=== PATIENT | female | born 1965 | race Caucasian/White ===

== ENCOUNTER 2020-07-16 14:19 | Emergency (ER) | payer OTHER ==
--- NOTE | 2020-07-16 15:33 | ER Document Report ---
ED Medical Screen (RME) - General Chief Complaint: Pain All Over Stated Complaint: MUSCLE PAIN,FEVER,HEADACHE Time Seen by Provider: 07/16/20 15:13 - HPI Notes: 07/16/20 15:25 55 year old female with a medical hx of fibromyalgia, Raynaud's disease, sjogren's syndrome, osteoarthritis, PTSD presents today with nonspecific complaints of muscle pain and joint pain all over for the last two months. Patient reports she has had low-grade fevers and chills for the last 2 months. She is from [place] decided to move to [place] to avoid the cold. Patient denies any chest pain, shortness of breath, nausea, vomiting, diarrhea, fevers. She does report chills. Denies any Covid positive interactions and denies any personal Covid positive test. Patient states she spoke to her primary care doctor this morning because she was concerned about discoloration with her hands and feet this morning, they advised her to go to the local ER. Patient does not have a primary care doctor in the area. patient states she did start with a rash on her nose and cheeks which she does have a picture of. When asked her if she had lupus she said she is unsure. Denies any lightheadedness dizziness blurred vision double vision loss of vision. Patient states she has been weak all over for the last 2 months or so I have greeted and performed a rapid initial assessment of this patient. A comprehensive ED assessment and evaluation of the patient, analysis of test results and completion of the medical decision making process will be conducted by additional ED providers. PHYSICAL EXAMINATION: GENERAL: Well-appearing, well-nourished and in no acute distress. HEAD: Atraumatic, normocephalic. EYES: Pupils equal round extraocular movements intact, conjunctiva are normal. NECK: Normal range of motion CV: s1, s2 regular LUNGS: No respiratory distress Musculoskeletal: Normal range of motion NEUROLOGICAL: Normal speech, normal gait. SKIN: Warm, Dry, normal turgor, no rashes or lesions noted. The patient was evaluated during a global COVID-19 pandemic and that diagnosis was suspected/considered upon their initial presentation. Their evaluation, treatment and testing was consistent with current guidelines for patients who present with complaints or symptoms and may be related to COVID-19. - Related Data Allergies/Adverse Reactions: Sulfa (Sulfonamide Antibiotics) Allergy (Verified 07/16/20 15:13) Physical Exam - Vital signs Vitals: Temp Pulse Resp BP Pulse Ox 98.1 F 98 20 128/94 H 97 07/16/20 14:50 07/16/20 14:50 07/16/20 14:50 07/16/20 14:50 07/16/20 14:50 Course - Vital Signs Vital signs: Temp Pulse Resp BP Pulse Ox 98.1 F 98 20 128/94 H 97 07/16/20 14:50 07/16/20 14:50 07/16/20 14:50 07/16/20 14:50 07/16/20 14:50
[2020-07-16 16:09] LABS: ABSOLUTE BASOPHILS # (AUTO) 0.1 10^3/uL (0.0-0.2); ABSOLUTE EOSINOPHILS # (AUTO) 0.2 10^3/uL (0.0-0.6); ABSOLUTE MONOCYTES (AUTO) 0.6 10^3/uL (0.1-1.4); BASOPHILS % (AUTO) 0.5 % (0-2); EOSINOPHILS % (AUTO) 1.6 % (0-6); HEMOGLOBIN 14.7 g/dL (12.0-15.5); LYMPHOCYTES % (AUTO) 16.7 % (13-45); MEAN CORPUSCULAR HEMOGLOBIN 29.6 pg (27.0-33.4); MEAN CORPUSCULAR HGB CONC 33.3 g/dL (32.0-36.0); MEAN CORPUSCULAR VOLUME 89 fl (80-97); MONOCYTES % (AUTO) 5.1 % (3-13); PLATELET COUNT 254 10^3/uL (150-450); RED BLOOD COUNT 4.96 10^6/uL (3.72-5.28); RED CELL DISTRIBUTION WIDTH 14.1 % (11.5-14.0); SEGMENTED NEUTROPHILS % (AUTO) 76.1 % (42-78); TOTAL CELLS COUNTED % (AUTO) 100 %; WHITE BLOOD COUNT 11.8 10^3/uL (4.0-10.5)
[2020-07-16 16:31] LABS: ALBUMIN 4.7 g/dL (3.5-5.0); ALKALINE PHOSPHATASE 89 U/L (38-126); ANION GAP 8 (5-19); ASPARTATE AMINO TRANSFERASE 26 U/L (14-36); BILIRUBIN,DIRECT 0.1 mg/dL (0.0-0.4); BILIRUBIN,TOTAL 0.4 mg/dL (0.2-1.3); BLOOD UREA NITROGEN 13 mg/dL (7-20); CALCIUM 9.8 mg/dL (8.4-10.2); CARBON DIOXIDE 29 mmol/L (22-30); CHLORIDE 100 mmol/L (98-107); GLUCOSE 94 mg/dL (75-110); POTASSIUM 4.3 mmol/L (3.6-5.0); TOTAL PROTEIN 7.8 g/dL (6.3-8.2)
[2020-07-16 16:34] LABS: C-REACTIVE PROTEIN < 5.0 mg/L (<10.0)
--- NOTE | 2020-07-16 17:59 | ER Document Report ---
ED General - General Chief Complaint: Pain All Over Stated Complaint: MUSCLE PAIN,FEVER,HEADACHE Time Seen by Provider: 07/16/20 15:13 - HPI Notes: 55-year-old female presents with pain all over. Patient initially states "don't even ask", she states that she is upset that she had to sit and 6 different chairs in the lobby, she has had to talk to 6 different nurses, she states she is upset that she has had to wear a mask. Eventually patient states that her head hurts, her face hurts, her mouth hurts. She states that her jacket feels heavy on her body, the sleeves on her jacket are hurting her wrists. Her bra is hurting her, her underwear is hurting her. She can feel all of the individual laces from her shoes on her feet. She states that her face is swollen, she no longer likes her normal appearance, and her eyes look beady. She states that she is fatigued, tired, exhausted. She states that she has had a rash all over her body. Her whole body is swollen. She states that the symptoms have been going on for 2 months. She also reports intermittent fever of 100 F. She states that she called her primary care doctor who is in [place] and was advised to go to the emergency department because the doctor reportedly said "I have never seen you look this bad". Patient moved to [place] from [place] about 2 months ago, she has not yet established with a primary care doctor. She reports she previously was on gabapentin, baclofen and hydroxychloroquine, however it has been "a while" since she has been on these medications, estimated about 2 years. She reports that her #1 autoimmune disease is fibromyalgia. She also has Raynaud's and the "dry eye, dry mouth" condition. She states that she has intermittently had to go on prednisone. She states that she is unsure of any medicines that typically when she gets like this, states that typically she has to take off all of her clothes which does provide some relief of her total body pain. She states she is taken ibuprofen and Tylenol which have provided no relief. She currently takes prazosin, duloxetine, BuSpar, Xanax and simvastatin. - Related Data Allergies/Adverse Reactions: Sulfa (Sulfonamide Antibiotics) Allergy (Verified 07/16/20 15:13) Past Medical History - General Information source: Patient - Social History Smoking Status: Never Smoker Family History: Reviewed & Not Pertinent Psychiatric Medical History: Reports: Hx Depression - ptsd/anxiety Past Surgical History: Reports: Hx Abdominal Surgery - tummy tuck, Hx Appendectomy, Hx Breast Surgery, Hx Section - x3, Hx Hysterectomy Review of Systems - Review of Systems Constitutional: Chills, Fever, Malaise EENT: Eye pain, Throat pain, Mouth pain Cardiovascular: denies: Chest pain Respiratory: denies: Cough, Short of breath Gastrointestinal: denies: Abdominal pain, Diarrhea, Vomiting Genitourinary: No symptoms reported Female Genitourinary: No symptoms reported Musculoskeletal: Back pain, Joint pain, Joint swelling, Muscle pain, Leg swelling Skin: Change in color, Rash Hematologic/Lymphatic: Other - Autoimmune disease Neurological/Psychological: Headaches Physical Exam - Vital signs Vitals: Temp Pulse Resp BP Pulse Ox 98.1 F 98 20 128/94 H 97 07/16/20 14:50 07/16/20 14:50 07/16/20 14:50 07/16/20 14:50 07/16/20 14:50 - General General appearance: Appears well, Alert In distress: None - HEENT Head: Normocephalic, Atraumatic Eyes: Scleral icterus Conjunctiva: Normal. No: Icteric, Injected Extraocular movements intact: Yes Pupils: PERRL Mouth/Lips: Normal Mucous membranes: Moist Neck: Supple - Respiratory Chest status: Nontender Breath sounds: Normal - Cardiovascular Rhythm: Regular Heart sounds: Normal auscultation Pulses: Normal: Dorsalis pedis Normal capillary refill: Yes - Abdominal Tenderness: Nontender - Extremities General upper extremity: Normal color, Normal ROM, Normal temperature. No: Edema General lower extremity: Normal color, Normal ROM, Normal temperature. No: Edema - Neurological Neuro grossly intact: Yes Cognition: Normal Orientation: AAOx4 - Psychological Associated symptoms: Other - Abrupt, abrasive affect - Skin Skin Temperature: Warm Skin Color: Normal. negative: Erythema, Petechiae, Ecchymosis Skin Turgor: Elastic Course - Re-evaluation Re-evalutation: 55-year-old female presents with total body pain ongoing for the past 2 months. She is recently moved here from [place] and still sees her PCP via telehealth visits. She has a reported history of fibromyalgia, Raynaud's and what sounds like Sjogren's syndrome. She is not on any current amino suppressants or other immune modulating drugs. Patient has multiple pain r elated complaints, including pain coming from her clothing, she is currently wearing a deni type jacket, a cotton top and jeans. She has full range of motion of all of her limbs. I do not appreciate any overt edema to her face or extremities. I do not appreciate any overt rash. She has normal perfusion to all of her extremities. Patient has multiple pictures on her phone which show the rash, I do not overtly appreciate this on the imaging. She also has intermittent photos of wrist, palm and ankle swelling. Again swelling to these areas is not currently present on exam. She is afebrile and hemodynamic stable. Lungs are clear, heart RRR, abdomen is soft. She had labs done through the triage process which shows a very slight elevated white blood cell count of 11.8 without associated left shift. No acute anemia, electrolytes within normal limits, creatinine within normal limits and an undetectable CRP. When I discussed the overall reassuring aspect of the labs with patient she became even more upset and stated that "I'm pissed off that the blood work is fine". I discussed with patient that we will trial Toradol, prednisone and Valium for her symptoms currently. Overall she needs to establish with a primary care doctor and reestablish with rheumatology for management of her chronic conditions, she did seem receptive to this conversation. 07/16/20 18:38 There is no elevation of CK to suggest muscle breakdown or inflammation, in conjunction with the undetectable CRP find this overall reassuring 07/16/20 20:23 Went into reassess patient. Continues to not exhibit any signs of rash or appreciable swelling. She still complains of feeling fatigued and having pain all throughout her body. I discussed with her can trial a prednisone burst pack as apparently she has had success with this in the past. I offered to prescribe her gabapentin which she refused stating it caused her side effects. I strongly encouraged her to establish with a primary care doctor and her carpenters supervisor, she states that she will do this. Return precautions given, stable at time of discharge. - Vital Signs Vital signs: Temp Pulse Resp BP Pulse Ox 98.7 F 77 20 133/83 H 97 12/15/20 20:07 07/16/20 20:07 07/16/20 14:50 07/16/20 20:07 07/16/20 20:07 - Laboratory Results Result Diagrams: 07/16/20 15:54 07/16/20 15:54 Laboratory Results Interpreted: 07/16/20 07/16/20 15:54 15:54 WBC 11.8 H RDW 14.1 H Absolute Neuts (auto) 9.0 H Est GFR (MDRD) Non-Af 57 L Critical Laboratory Results Reviewed: No Critical Results - Radiology Results Critical Radiology Results Reviewed: No Critical Results Discharge - Discharge Clinical Impression: Generalized pain Disposition: HOME, SELF-CARE Additional Instructions: Please establish with rheumatology and a primary care doctor. You have been provided a contact information for Dr. Colón who is a carpenters supervisor with [facility] arthritis practice. You may trial prednisone burst for symptomatic c ontrol. Turn to the emergency department for a concerning worsening symptoms. Referrals: DEEPTI COLÓN MD [ACTIVE STAFF] - Follow up as needed LUIS ALBERTO POWERS DO [NO LOCAL MD] - Follow up as needed
[2020-07-16] MEDS ORDERED: KETOROLAC TROMETHAMINE 60 MG/2 ML SDV IM ONE (18:19)
[2020-07-16] MEDS ORDERED: PREDNISONE 20 MG TABLET PO ONE (18:19)
[2020-07-16] MEDS ORDERED: DIAZEPAM 5 MG TABLET PO ONE (18:20)
[2020-07-16 20:08] VITALS: BP 133/83
== END 2020-07-16 20:30 | disposition home or self-care (01) ==
LOC: ER 14:19
DX: M79.10 Myalgia, unspecified site (principal); R50.9 Fever, unspecified; R53.81 Other malaise
CPT/HCPCS: 99284; 96372; 36415; 82550; 85025; 86140; 80053; J1885; J7512